=== PATIENT | male | born 1940 | race Caucasian/White ===

== ENCOUNTER → 2018-02-15 10:16 | Outpatient (CLI) | payer MEDICARE, BC, SELFPAY ==
--- NOTE | 2018-02-15 10:23 | RAD_ITS ---
STUDY: X-RAY - LEFT SHOULDER REASON FOR EXAM: Male, 77 years old. Inflammatory polyarthropathy TECHNIQUE: 4 view(s) of the shoulder. COMPARISON: None. FINDINGS: There is mild degenerative arthrosis of the glenohumeral articulation. There is degenerative arthrosis of the acromioclavicular joint without inferior osseous spur formation. Normal acromion. Normal humeral head and visualized proximal humerus. The soft tissue structures are unremarkable. Normal visualized pulmonary apex. RAD/Shoulder min 2 Views IMPRESSION: Mild degenerative changes of the glenohumeral and acromioclavicular joints. Electronically Signed: Bin Brewer MD at 17:13 EDT , Service support ,
== END ==
PROVIDERS: Family Provider Preventive Medicine Occupational Medicine; PCP Preventive Medicine Occupational Medicine; Visit Provider Internal Medicine Rheumatology
DX: M35.3 Polymyalgia rheumatica (principal); M06.4 Inflammatory polyarthropathy; Z79.899 Other long term (current) drug therapy; K21.9 Gastro-esophageal reflux disease without esophagitis
CPT/HCPCS: 73030

== ENCOUNTER → 2020-07-09 15:19 | Outpatient (CLI) | payer MEDICARE, BC, SELFPAY ==
--- NOTE | 2020-07-09 15:30 | PET_ITS ---
EXAMINATION: FDG PET/CT INDICATIONS: A 80-year-old male with reported history of lymphoma presenting for initial staging examination. COMPARISON EXAMINATION: None available INDEX LESION SIZE LUGANO SCORE SUV INTERPRETATION Right inguinal region 16.2 x 10.6-mm (frame 43) 4 2.5 Fulfills quantitative criteria for viable neoplasm Right lateral neck 8.7 x 13.5-mm (frame 232) 4 3.4 Fulfills quantitative criteria for viable neoplasm Mediastinum, bilateral thoracic perihilum 10.9 x 29.1-mm (largest) (frame 180) 4 2.8 (max) Fulfills quantitative criteria for viable neoplasm Ninth thoracic vertebra-sacrum 4 3.7 (max) Fulfills quantitative criteria for viable neoplasm TECHNIQUE: Following the intravenous administration of 13.47 mCi of F-18 deoxyglucose via the left antecubital fossa, multiplanar image acquisitions of the neck, chest, abdomen and pelvis to level of mid thigh, obtained at one hour post radiopharmaceutical administration contemporaneously interpreted with the current CT of the neck, chest, abdomen and pelvis to level of mid thigh, dated 07/09/2020 via coregistration reveal: SERUM GLUCOSE LEVEL: 69 mg/dl. HEIGHT: 68 inches. WEIGHT: 20 0 lbs. FINDINGS: 1. Focal increased glucose metabolism is defined in the right inguinal region in a single nodular focus generating a calculated maximal standard uptake value of 2.5. The Lug[place] Deauville score is 4. The maximal axial diameter of the corresponding hypermetabolic soft tissue density on review of CT of the pelvis dated 07/09/2020 is 16.2-mm (transverse) x 10.6-mm (AP). 2. Enhanced FDG distribution is manifest in the right lateral neck involving level II-A. The calculated maximal standard uptake value is 3.4. The [place] Deauville score is 4. The maximal axial diameter of the corresponding hypermetabolic soft tissue density on review of CT of the neck dated 07/09/2020 is 8.7-mm (transverse) x 13.5-mm (AP). 3. An increase in FDG distribution is manifest tin the carinal level mediastinum and bilateral thoracic perihilum registering a calculated maximal standard uptake value of 2.8. The Lug[place] Deauville score is 4 if applicable. The maximal axial diameter of the largest metabolic, morphologic abnormality on review of CT of the chest dated 07/09/2020 is 10.9-mm (transverse) x 29.1-mm (AP). 4. Enhanced tracer uptake is observed in the distal sternum, ninth thoracic vertebra generating a calculated maximal standard uptake value of 3.7. The Lug[place] Deauville score is 4. 5. Normal physiologic distribution of the radiopharmaceutical is apparent in the hepatic (2.4) and splenic parenchyma, both renal units, bladder and visualized intestinal tract. The visualized portion of the cerebral cortex demonstrate symmetric and preserved glucose metabolism. There is homogenous enhanced glucose concentration evidenced in the visualized appendicular and axial skeletal structures. Pertinent CT findings are as follows: CHEST: Atherosclerotic calcification is defined in the thoracic aorta. The maximal axial diameter of the ascending thoracic aorta is 43.1-mm. Coronary arterial calcification is observed. Bilateral axillary soft tissue with fatty hilus is non-glucose avid. There are no parenchymal densities-nodules defined in the right and left hemithorax with discernible increased FDG uptake. A prominent hiatal hernia is defined. ABDOMEN AND PELVIS: There is atherosclerotic calcification defined in the abdominal aorta without evidence of dilatation-aneurysm formation. Calcification is noted in the pelvic arterial vasculature. The maximal axial diameter of the proximal right common iliac artery is 26.1-mm. Additional right and visualized left inguinal soft tissue densities with fatty hilus are non-glucose avid. Phlebolith formation is defined in the bilateral lower hemipelvis. SKELETAL: Degenerative changes are noted in the cervical, thoracic and lumbar spine. Mixed sclerotic-lytic change is manifest in the axial skeletal structures. PET/PET/CT Tumor Base -Thigh Subs IMPRESSION: 1. ABNORMAL EXAMINATION INDICATIVE OF MALIGNANT VIABLE NEOPLASM. 2. Increased glucose concentration observed in the right inguinal region, the right lateral neck and mediastinum-bilateral thoracic perihilum fulfills quantitative criteria for viable neoplasm. (Cheson et al, Journal of Clinical Oncology 32:3059, 2014). 3. Enhanced tracer uptake focally apparent in the ninth thoracic vertebra and distal sternum fulfill quantitative criteria for viable osseous neoplasm. (Janice et al, Clinical Nuclear Medicine, 29:161, 2004). 4. Homogenous increased radiopharmaceutical concentration manifest throughout the visualized appendicular-axial skeletal structures, in the absence of chemotherapeutic intervention, is consistent with the pattern associated with hyperplasia of the hematopoietic marrow. (Melissa, AJR 180:669, 2003). Alternatively, this may represent diffuse neoplastic infiltration. Electronic Signature Kaz Quiroz D.O. Accurate Quantification of SUVs for this report are calculated using the exclusive [employer]? Technology.??Exclusive U.S. Patent Accuquan? Technology (U.S. Patent No. [id number] [id number]). Electronically Signed: Kaz Quiroz DO at 10:01 EST Tel , Service support ,
== END ==
PROVIDERS: PCP Preventive Medicine Occupational Medicine; Referring Provider Internal Medicine Hematology & Oncology; Visit Provider Internal Medicine Hematology & Oncology
DX: C83.30 Diffuse large B-cell lymphoma, unspecified site (principal)
CPT/HCPCS: 78815; A9552

== ENCOUNTER 2020-07-16 12:30 | Day surgery (SDC) | payer MEDICARE, BC, SELFPAY ==
--- NOTE | 2020-07-15 10:46 | HP.PCM_ITS ---
History and Physical Date of Admission: 07/16/20 HISTORY AND PHYSICAL ? Nathan Guy 1940 ? ? REFERRING PHYSICIAN: Bailey Aleman MD ? CHIEF COMPLAINT: No chief complaint on file. ? HPI: The patient is a 80 year old male is referred by his oncologist for need for permanent central IV access for chemotherapy. The patient has been diagnosed with B cell lymphoma. He denies previous placement of central lines. He denies fractures of the clavicles or ribs. He denies previous deep venous thromboses. ? ? PAST MEDICAL HISTORY Diagnosis Date ? Bone metastases (HCC) 07/05/2020 ? 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 Polymyalgia (HCC) ? ? Rheumatoid arthritis (HCC) ? ? PAST SURGICAL HISTORY Procedure Laterality Date ? COLONOSCOPY ? 2014 ? HERNIA REPAIR HX ? ? ? inguinal ? INGUINAL HERNIA REPAIR HX Bilateral 1998 ? LIVER BIOPSY ? 06/2020 ? PAST SURGICAL HISTORY OF Bilateral ? ? Wrist surgery ? WRIST SURGERY HX Bilateral 1998 ? repair of fracture ? ? Current Outpatient Medications Medication Sig ? pregabalin (LYRICA) 75 mg capsule Take 1 capsule by mouth twice daily for 30 days. ? allopurinol (ZYLOPRIM) 300 mg tablet Take 1 tablet by mouth once daily. Start day before your chemotherapy ? [START ON 07/10/2020] predniSONE (DELTASONE) 50 mg Take 1 tablet by mouth twice daily for 5 days. ? oxyCODONE IR (ROXICODONE) 5 mg immediate release tablet Take 1 tablet by mouth every 6 hours as needed for up to 14 days. FOR PAIN. ? folic acid 1 mg tablet Take 1 mg by mouth twice daily. ? hydrOXYchloroQUINE (PLAQUENIL) 200 mg tablet Take 200 mg by mouth twice daily. ? prochlorperazine (COMPAZINE) 10 mg tablet Take 1 tablet by mouth every 6 hours as needed. ? docusate sodium (COLACE) 100 mg capsule Take 1 capsule by mouth twice daily. ? ? ALLERGIES: Patient has no known allergies. ? PERSONAL HISTORY: Social History ? Tobacco Use ? Smoking status: Current Every Day Smoker ? ? Years: 50.00 ? ? Types: Cigars ? Smokeless tobacco: Never Used ? Tobacco comment: Pt smokes 3-4 cigars weekly. Substance Use Topics ? Alcohol use: Yes ? ? Comment: rare wine ? Drug use: Never ? FAMILY HISTORY Problem Relation Age of Onset ? Heart Brother ? ? ? REVIEW OF SYSTEMS: CONSTITUTIONAL: ?No fevers, chills, nightsweats, unintended weight loss HEENT: ?Denies frequent or severe heaches, nasal congestion/sinus symptoms, problematic allergy problems. EYES: ?No diplopia or blurry vision. CARDIOVASCULAR: ?No chest pain, dyspnea, palpitations, orthopnea, PND, ankle edema. PULM: ?No dyspnea, unexplained cough. GI: ?No dysphagia/odynophagia, problematic reflux, constipation, diarrhea, changes in stool habits, hematochezia, melena. : ?No new urinary complaints, including dysuria, gross hematuria or pyuria. NEURO: ?No new balance problems, peripheral weakness/paresthesias or numbness of concern. MUSC-SKEL: ?No new joint pain, swelling, or erythema. PSY: ?No concerns regarding depression, anxiety or panic. INTEGUMENTARY: ?No new skin changes (rash, new or changing mole, new growth) ? ? PHYSICAL EXAMINATION: General: The patient is 80 year old male, well nourished, well hydrated in no acute distress. The patient is oriented to time, place, and person. VITALS: Pulse 96, temperature 37.4 ?C (99.4 ?F), weight 90.9 kg (200 lb 6.4 oz), SpO2 96 %. Body mass index is 30.7 kg/m?. Head ? Normocephalic. EOM intact with sclera clear and no icterus noted. Mouth with mucus membranes moist. Neck - supple with no jugular venous distention noted. Trachea is midline. Lungs ? clear to auscultation. Normal breath sounds. No rales/rhonchi/wheezing noted. No labored breathing noted, such as retractions. No cough heard. Heart ? normal S1 and S2 auscultated. No rubs/clicks/murmurs noted. Regular rate. Abdomen ? soft and benign. Normal bowel sounds. No abdominal bruits noted. abitus. Extremities ? no calf tenderness noted. No pitting edema noted. Skin ? normal skin integrity. Neurological ? gait normal, no focal deficits noted. Psych ? calm and appropriate ? ? IMPRESSION: B cell lymphoma, need for portacath ? PLAN: I have discussed the above with the patient. I have offered portacath placement, he prefers right side as he recently injured his left shoulder/chest area. I have explained the procedure to the patient. I have counseled the patient as to the risks of the procedure, including but not limited to: infection, bleeding, injury to any blood vessels/nerves, scar tissue, injury to the lungs such as hemothorax and/or pneumothorax, thromboses of the blood vessels, line sepsis, non functioning of the port, wound infections, complications of anesthesia, etc. ? the patient understands. ? The patient was offered a surgery/procedure. The provider and patient have discussed in detail the risk of exposure to and/or potential harm posed by the COVID-19 virus with having a surgery/procedure at this time versus the risk of? delaying the surgery/procedure. It is not possible to know either the risk of delaying the surgery or procedure or chance of getting an infection with perfect accuracy, but a joint decision was made between the patient and the provider ?to proceed at this time with the scheduled surgery/procedure. ? The patient wishes to proceed. Will schedule procedure at [facility] as per his wishes - scheduled for . The patient prefers a right sided access. ? ? I have answered all questions to the patient?s satisfaction and the patient has no further questions. . 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 ? Colleen Gonzalez MD
[2020-07-16 13:08] VITALS: BP 107/85; PULSE 63; RESP 16; TEMP 36.5; O2SAT 96; BMI 28.8
[2020-07-16] MEDS: Lactated Ringers 1,000 ML 75 ML IV (13:27)
[2020-07-16] MEDS: Cefazolin 2 GM in 0.9% Normal Saline 100 ML IV (14:13)
[2020-07-16] MEDS: Lidocaine 1% /Epi 1:100 (20ml) 20 ML Vial (14:33)
--- NOTE | 2020-07-16 14:56 | PCM.OPRPT ---
Report of Operation Date of Procedure: 07/16/20 Pre-Operative Diagnosis: lymphoma, need for IV access Post-Operative Diagnosis: same Surgery/Procedure Performed:: placement of permanent indwelling tunneled catheter in right subclavian vein with subcutaneous port Description of Surgical Findings:: normal right subclavian vein anatomy to SVC Type of Anesthesia:: Local MAC Anesthesiologist: Ross Smith Estimated Blood Loss (mL): < 5 ml Fluids Replaced: 800 ml RL Description of Procedure: After informed consent was given, the patient was brought to the Operating Room. Appropriate time out protocol was followed. The patient was then placed in the supine position. The patient was then given IV conscious sedation for anesthesia. The patient?s upper chest and neck were then prepped with a surgical skin preparation and sterile surgical drapes were placed. After proper landmarks were ascertained, the skin at the upper right chest area was then infiltrated with 1% xylocaine with epinephrine. A needle trocar was then inserted into the right subclavian vein and there was good aspiration of venous blood. A wire was then threaded into the needle trocar and this was visualized under fluoroscopy to ensure that the wire was in the right subclavian vein. Once this was done, then the needle trocar was removed. A small skin gabriela was made with an 11 blade knife at the wire entrance site. The dilator with the introducer sheath attached was then placed over the wire into the right subclavian vein via the Seldinger technique and this was visualized under fluoroscopy. The dilator and sheath were in proper position as visualized by fluoroscopy in real time. The wire and dilator were then removed. The catheter was then threaded into the introducer sheath and was positioned with its tip at the junction of the superior vena cava and the right atrium as visualized under fluoroscopy in real time. I personally reviewed all of the above fluoroscopic images and noted that the positions of the wire and catheter were correct so that the next step could be conducted. The catheter was flushed with a heparin saline mixture prior to placement. A subcutaneous pocket was then created caudad to the catheter insertion site. A transverse skin incision was made after the skin and subcutaneous tissues were infiltrated with local anesthetic. Blunt dissection was then used to create a space large enough for placement of the subcutaneous port. Hemostasis was carefully controlled with electrocautery. The port was sutured to the subcutaneous fascia using vicryl suture at three sites. The catheter was then tunneled into the subcutaneous pocket. The excess catheter was transected. The catheter was then attached to the subcutaneous port using hook and eye sewing machine operator?s guidelines. The port was then placed in the subcutaneous pocket and the sutures were ligated. The subdermal incisional sites were reapproximated with interrupted vicryl suture. The skin was reapproximated with monocryl suture in a subcuticular fashion. Cavilon and steristrips were used for reinforcement of the skin closure and a sterile opsite dressing was applied. Sponge, needle, and instrument count were verified and correct at the time of skin closure. The patient was brought to the Recovery Room in stable condition Grafts/Implants Used: Power Port 8Fr [id number] exp 2022-01-29 - Complications none noted - Admit VTE Documentation VTE Present on Admission: Yes VTE Mechan Device Prophylaxis: SCD's
[2020-07-16 15:10] VITALS: BP 107/85; BP 95/75; PULSE 71; RESP 18; TEMP 36.3; O2SAT 95
--- NOTE | 2020-07-16 15:11 | PCM.DC.POR ---
Discharge Diet: No Restrictions Additional Instructions: Recommended pain control regimen - May take 600 mg ibuprofen (Motrin) and then in 3-4 hours, may take 650 mg acetaminophen (Tylenol), then in 3-4 hours may take 600 mg ibuprofen, then in 3-4 hours may take 650 mg acetaminophen and so on for 2-3 days May take narcotic pain medication for pain that is not controlled by above and at night for comfort through the night Leave dressings in place May get dressings wet in shower - do not scrub in the area and pat dry Do not soak - no tub baths/swimming If dressing appears to be soiled/open at one end/no longer sealed - may remove dressing but leave site uncovered (do not replace with any type of dressing) - leave steristrips in place - may get wet but do not scrub in the area and pat dry If any questions/concerns, please call . No follow up to be scheduled, to decrease your risk of exposure during this COVID crisis. Allergies/Adverse Reactions: Allergies No Known Allergies Allergy (Verified 07/16/20 13:07) Medications to take at Discharge Docusate Sodium 100 mg PO BID 07/12/20 Folic Acid 1 mg PO BID 07/12/20 Hydroxychloroquine Sulfate [Plaquenil] 200 mg PO BID 07/12/20 Oxycodone CR [Oxycontin] 5 mg PO BID 07/12/20 Polyethylene Glycol 3350 [Miralax] 17 gm PO QHS 07/12/20 Pregabalin [Lyrica] 75 mg PO BID 07/12/20 Prochlorperazine Maleate [Compazine] 10 mg PO PRN PRN 07/12/20 Oxycodone [Oxyir] 5 mg PO Q4H PRN PRN 2 Days #10 tablet 07/16/20 The following prescriptions were given: Oxycodone [Oxyir] 5 mg PO Q4H PRN PRN 2 Days #10 tablet PRN Reason: Pain 1-10 Or Fever Transmission Status: Received by [facility]/pharmacy #[id number] Primary Care Physician: Delfin Amezcua DO [Primary Care Provider] - Test Results: Test results from this visit will be discussed in further detail at your follow-up appointment, if applicable. Please Follow Up With: Colleen Gonzalez MD - call if any questions/concerns When: can follow up in the oncology clinic, leave dressing in place
[2020-07-16 15:15] VITALS: BP 107/85; BP 110/70; PULSE 69; RESP 18; O2SAT 95
--- NOTE | 2020-07-16 15:15 | RAD_ITS ---
STUDY: X-RAY CHEST REASON FOR EXAM: Male, 80 years old. Port placement TECHNIQUE: Single AP portable view of the chest. COMPARISON: None. FINDINGS: A right-sided chiquita catheter has been placed with the tip in the proximal portion of the superior vena cava. EKG electrodes are seen. Mild increased markings in the upper lobes as well as at the left lung base. There is no demonstrated pleural abnormality. Normal size heart. Normal mediastinum and joe. Normal visualized pulmonary arteries. There is atherosclerotic calcification of the aortic arch with tortuosity. There are diffuse degenerative changes of the visualized thoracic spine. Normal visualized ribs, clavicles, and shoulders. There is no demonstrated abnormality of the visualized soft tissue structures of the upper abdomen. RAD/CXR for Line Placement IMPRESSION: The tip of the right portacatheter is in the proximal portion of the superior vena cava. Electronically Signed: Denys Bartholomew, at 15:29 EST , Service support ,
[2020-07-16 15:20] VITALS: BP 107/85; BP 111/70; PULSE 74; RESP 18; O2SAT 95
[2020-07-16 15:25] VITALS: BP 107/85; BP 121/68; PULSE 73; RESP 18; TEMP 36.2; O2SAT 95
[2020-07-16 16:00] VITALS: BP 107/85
== END 2020-07-16 16:10 | disposition home or self-care (01) ==
LOC: SDC 12:43 → AC 12:46
PROVIDERS: PCP Preventive Medicine Occupational Medicine; Referring Provider Surgery; Visit Provider Surgery
PROC: (CPT 36561; principal; 2020-07-16 14:10)
DX: Z45.2 Encounter for adjustment and management of vascular access device (principal); C83.39 Diffuse large B-cell lymphoma, extranodal and solid organ sites; C79.51 Secondary malignant neoplasm of bone; F17.290 Nicotine dependence, other tobacco product, uncomplicated; M06.9 Rheumatoid arthritis, unspecified; M35.3 Polymyalgia rheumatica
CPT/HCPCS: 36561; 71045; 77001; 87426; C9803; J7120; C1788; J2405

== ENCOUNTER → 2020-11-26 14:06 | Outpatient (CLI) | payer MEDICARE, BC, SELFPAY ==
--- NOTE | 2020-11-26 14:30 | PET_ITS ---
EXAMINATION: FDG PET-CT INDICATIONS: A 80-year-old male with history of lymphoma presenting for restaging examination. COMPARISON EXAMINATION: FDG PET study dated 07/09/20, CT of the chest, abdomen and pelvis reports dated 09/07/20 TECHNIQUE: Following the intravenous administration of F-18 deoxyglucose, multiplanar image acquisitions of the neck, chest, abdomen and pelvis to level of mid thigh, obtained at one hour post radiopharmaceutical administration contemporaneously interpreted with the current CT of the neck, chest, abdomen and pelvis, to level of mid thigh, dated 11/26/20 via coregistration and FDG PET study dated 07/09/20, CT of the chest, abdomen and pelvis reports dated 09/07/20 reveals: FINDINGS: 1. There is no quantitative scintigraphic evidence of abnormal increased glucose metabolism on meticulous inspection of whole body acquisitions to include all three axis reconstructions. 2. Normal physiologic distribution of the radiopharmaceutical is apparent in the hepatic and splenic parenchyma, both renal units, bladder and visualized intestinal tract. The visualized portion of the cerebral cortical-subcortical structures demonstrate symmetric and preserved glucose metabolism. Diffuse radiopharmaceutical concentration is noted in all four quadrants of the abdomen and pelvis. There is homogenous enhanced glucose concentration evidenced in the visualized appendicular and axial skeletal structures. The previously identified hypermetabolic foci noted in the right inguinal region, right lateral neck, mediastinum and right-left thoracic perihilum, axial skeletal structures are not apparent on the current examination. Sujey-cath placement is noted. Previously defined morphologic-anatomic changes noted on review of CT of the neck, chest, abdomen and pelvis on the FDG PET-CT report dated 07/09/20, are essentially unchanged on the current examination. PET/PET/CT Tumor Base -Thigh Subs IMPRESSION: 1. NEGATIVE EXAMINATION. There is no definitive quantitative scintigraphic evidence of recurrent/viable neoplasm. 2. There is interval resolution of all previously defined hypermetabolic abnormalities. 3. Homogeneous increased radiopharmaceutical concentration noted in the visualized appendicular and axial skeletal structures is commensurate with the hematopoietic response to chemotherapeutic intervention. (Dustin et al, Journal of Clinical Oncology 16:173, 1998). 4. Overall, compared to the previous FDG PET-CT study dated 07/09/20, there is current absence of defined viable neoplastic disease with an interim quantitative complete metabolic response relating to all previously described quantitatively significant hypermetabolic abnormalities. Electronic Signature Kaz Quiroz D.O. Accurate Quantification of SUVs for this report are calculated using the exclusive [employer]? Technology.??Exclusive U.S. Patent [employer]? Technology (U.S. Patent No. [id number]). Electronically Signed: Kaz Quiroz, at 22:58 EDT Tel , Service support ,
== END ==
PROVIDERS: PCP Preventive Medicine Occupational Medicine; Referring Provider Internal Medicine Hematology & Oncology; Visit Provider Internal Medicine Hematology & Oncology
DX: C83.39 Diffuse large B-cell lymphoma, extranodal and solid organ sites (principal)
CPT/HCPCS: 78815; A9552